=== PATIENT | female | born 1960 | race Native Hawaiian/Other Pacific Islander ===

== ENCOUNTER 2017-01-07 17:08 | Emergency (ER) | payer OTHER ==
[2017-01-07 17:20] VITALS: TEMP 98.6
[2017-01-07] MEDS ORDERED: Sodium Chloride 0.9% 1,000 ML IV STA (17:28)
--- NOTE | 2017-01-07 17:31 | ED PDOC ---
Arrival/HPI - General Chief Complaint: Abdominal Pain Time Seen by Provider: 01/07/17 17:14 Historian: Patient - History of Present Illness Time/Duration: 1/2 hour Symptom Onset: Sudden Symptom Course: Unchanged Quality: Aching Severity Level: Severe Activities at Onset: Rest Associated Symptoms (Text): 01/07/17 17:29 Patient complains of acute onset approximately 30 minutes prior to arrival of severe left flank pain along with nausea and bilious vomiting. Similar to previous kidney stone 2 years ago. No diarrhea. No genitourinary symptoms. No fever or chills. Past Medical History - Infectious Disease Hx of Infectious Diseases: None - Reproductive Menopause: Yes - Renal Hx Kidney Stones: Yes - Psychiatric Hx Substance Use: No Family/Social History - Physician Review Nursing Documentation Reviewed: Yes Family/Social History: Unknown Family HX Smoking Status: Never Smoked Hx Alcohol Use: No Hx Substance Use: No Allergies/Home Meds Allergies/Adverse Reactions: Allergies No Known Allergies Allergy (Verified 01/07/17 17:20) Review of Systems - Physician Review All systems were reviewed & negative as marked: Yes - Review of Systems Constitutional: Normal Respiratory: Normal Cardiovascular: Normal Gastrointestinal: Nausea, Vomiting. absent: Abdominal Pain, Diarrhea Genitourinary Female: absent: Dysuria, Frequency, Hematuria Physical Exam Vital Signs Temp Pulse Resp BP Pulse Ox 01/07/17 17:17 98.6 F 80 16 166/94 H 99 Temperature: Afebrile Blood Pressure: Hypertensive Pulse: Regular Respiratory Rate: Normal Appearance: Positive for: Well-Appearing, Non-Toxic, Uncomfortable, Other ( diaphoretic) Pain Distress: Severe Mental Status: Positive for: Alert and Oriented X 3 - Systems Exam Head: Present: Atraumatic, Normocephalic Pupils: Present: PERRL Extroacular Muscles: Present: EOMI Conjunctiva: Present: Normal Mouth: Present: Moist Mucous Membranes Pharnyx: No: ERYTHEMA, EXUDATE, TONSILS ENLARGED Respiratory/Chest: Present: Clear to Auscultation, Good Air Exchange. No: Respiratory Distress, Accessory Muscle Use Cardiovascular: Present: Regular Rate and Rhythm, Normal S1, S2. No: Murmurs Abdomen: Present: Normal Bowel Sounds. No: Tenderness, Distention, Peritoneal Signs, Rebound, Guarding Back: Present: Normal Inspection. No: CVA Tenderness Upper Extremity: Present: Normal Inspection. No: Cyanosis, Edema Lower Extremity: Present: Normal Inspection. No: Edema Neurological: Present: GCS=15, CN II-XII Intact, Speech Normal Skin: Present: Warm, Normal Color, Diaphoretic. No: Dry, Rashes Medical Decision Making ED Course and Treatment: 01/07/17 18:40 Pain and nausea and vomiting have improved somewhat. 01/07/17 19:51 Symptoms markedly improved. Patient is no longer diaphoretic. No more nausea or vomiting. She will be discharged home accompanied by her friends to follow up with her urologist. Follow up in the ER as needed. - Lab Interpretations Lab Results: 01/07/17 17:56 01/07/17 17:56 Lab Results 01/07/17 19:15: Urine Color Yellow, Urine Appearance Sl cloudy, Urine pH 6.5, Ur Specific [place] 1.015, Urine Protein Negative, Urine Glucose (UA) Negative, Urine Ketones 40 H, Urine Blood Large H, Urine Nitrate Negative, Urine Bilirubin Negative, Urine Urobilinogen 0.2, Ur Leukocyte Esterase Moderate H, Urine RBC Tntc, Urine WBC 10 - 15, Ur Epithelial Cells 10 - 12 01/07/17 17:56: Sodium 141, Potassium 3.4 L, Chloride 102, Carbon Dioxide 26, Anion Gap 16, BUN 19, Creatinine 0.8, Est GFR ( Amer) > 60, Est GFR (Non- Af Amer) > 60, Random Glucose 142 H, Calcium 9.7, Total Bilirubin 0.6, AST 30, ALT 47, Alkaline Phosphatase 73, Total Protein 7.6, Albumin 4.7, Globulin 2.9, Albumin/Globulin Ratio 1.6, Lipase 129 01/07/17 17:56: WBC 10.9, RBC 4.73, Hgb 14.2, Hct 41.3, MCV 87.3, MCH 30.0, MCHC 34.4, RDW 12.6, Plt Count 273, MPV 9.7, Gran % 74.5 H, Lymph % (Auto) 20.6 L, [place] % (Auto) 4.1, Eos % (Auto) 0.7 L, Baso % (Auto) 0.1, Gran # 8.14 H, Lymph # 2.3, [place] # 0.5, Eos # 0.1, Baso # 0.01 - RAD Interpretation Radiology Orders: 01/07/17 17:28 ABD & PELVIS W/O PO OR IV CONT [CT] Stat CT scan of the abdomen and pelvis is read by the radiologist shows a 4 mm left ureteral stone with mild hydronephrosis. Radiographic Technologist: Radiologist - Medication Orders Current Medication Orders: Discontinued Medications Sodium Chloride (Sodium Chloride 0.9%) 1,000 mls @ 1,000 mls/hr IV .Q1H STA Stop: 01/07/17 18:27 Last Admin: 01/07/17 18:03 Dose: 1,000 mls/hr eMAR Start Stop Document 01/07/17 18:03 OCS (Rec: 01/07/17 18:04 OCS [id number] Intravenous Solution Start Date 01/07/17 Start Time 18:03 Ketorolac Tromethamine (Toradol) 30 mg IVP STAT STA Stop: 01/07/17 17:29 Last Admin: 01/07/17 18:12 Dose: 30 mg MAR Pain Assessment Document 01/07/17 18:12 OCS (Rec: 01/07/17 18:12 OCS [id number] Pain Reassessment Is this a pain reassessment? Yes Sleep Is patient sleeping during reassessment? No Presence of Pain Presence of Pain Yes Location Pain Location Body Site Abdomen Description Description Constant Intensity of Pain at present 10 IVP Administration Document 01/07/17 18:12 OCS (Rec: 01/07/17 18:12 OCS [id number] Charges for Administration # of IVP Administrations 1 Ondansetron HCl (Zofran Inj) 4 mg IVP STAT STA Stop: 01/07/17 17:29 Last Admin: 01/07/17 18:03 Dose: 4 mg IVP Administration Document 01/07/17 18:03 OCS (Rec: 01/07/17 18:03 OCS [id number] Charges for Administration # of IVP Administrations 1 Disposition/Present on Arrival - Present on Arrival Any Indicators Present on Arrival: No History of DVT/PE: No History of Uncontrolled Diabetes: No Urinary Catheter: No History of Decub. Ulcer: No History Surgical Site Infection Following: None - Disposition Have Diagnosis and Disposition been Completed?: Yes Diagnosis: Renal colic, Nephrolithiasis Disposition: HOME/ ROUTINE Disposition Time: 19:52 Patient Plan: Discharge Condition: IMPROVED Discharge Instructions (ExitCare): Renal Colic (ED) Prescriptions: oxyCODONE/Acetaminophen [Percocet 5/325 mg Tab] 1 ea PO Q6 #15 tab Ondansetron [Zofran Odt] 4 mg SL Q6 #20 odt Referrals: PCP,NO [Primary Care Provider] - Follow up with primary Nick Wang MD [Staff Provider] - Follow up with primary Forms: [employer] ([place]ian)
[2017-01-07 18:07] LABS: BASO # 0.01 K/mm3 (0.0-2.0); BASO % 0.1 % (0.0-3.0); EOS # 0.1 (0.0-0.7); EOS % 0.7 % (1.5-5.0); GRAN # 8.14 (1.4-6.5); GRAN % 74.5 % (50.0-68.0); HEMATOCRIT 41.3 % (36.0-48.0); LYMPH # 2.3 (1.2-3.4); LYMPH % 20.6 % (22.0-35.0); MEAN CELL VOLUME 87.3 fl (80.0-105.0); MEAN CORPUSCULAR HGB CONC 34.4 g/dl (31.0-37.0); MEAN PLATELET VOLUME 9.7 fl (7.0-11.0); MONO # 0.5 (0.1-0.6); MONO % 4.1 % (1.0-6.0); RED CELL DISTRIBUTION WIDTH 12.6 % (11.5-14.5); WHITE BLOOD COUNT 10.9 10^3/ul (4.5-11.0)
[2017-01-07 18:30] LABS: ALB/GLOB RATIO 1.6 (1.1-1.8); ALKALINE PHOSPHATASE 73 U/L (38-126); ALT/SGPT 47 U/L (7-56); AST/SGOT 30 U/L (14-36); BILIRUBIN,TOTAL 0.6 mg/dL (0.2-1.3); BLOOD UREA NITROGEN 19 mg/dL (7-21); CALCIUM 9.7 mg/dL (8.4-10.5); CARBON DIOXIDE 26 mmol/L (21-33); CHLORIDE 102 mmol/L (98-107); GFR AFRICAN-AMERICAN > 60; GLUCOSE,RANDOM 142 mg/dL (70-110); LIPASE 129 U/L (23-300); POTASSIUM 3.4 mmol/L (3.6-5.0); SODIUM 141 mmol/L (132-148); TOTAL PROTEIN 7.6 g/dL (5.8-8.3)
[2017-01-07 19:36] LABS: PH,URINE 6.5 (4.7-8.0); URINE BILIRUBIN NEGATIVE (NEGATIVE); URINE BLOOD LARGE (NEGATIVE); URINE GLUCOSE (UA) NEGATIVE (NEGATIVE); URINE KETONE 40 mg/dL (NEGATIVE); URINE LEUKOCYTE ESTERASE MODERATE Leu/uL (NEGATIVE); URINE PROTEIN NEGATIVE mg/dL (<30 mg/dL); URINE UROBILINOGEN 0.2 E.U./dL (<1 E.U./dL)
[2017-01-07 19:41] LABS: URINE APPEARANCE SL CLOUDY (CLEAR); URINE COLOR YELLOW (YELLOW)
[2017-01-07 19:42] LABS: URINE RBC TNTC /hpf (0-2)
[2017-01-07 19:55] VITALS: BP 119/92; PULSE 83; RESP 18; O2SAT 98
--- NOTE | 2017-01-08 09:23 | CT ---
PROCEDURE: CT Abdomen and Pelvis without intravenous or oral contrast HISTORY: left stone run COMPARISON: None. TECHNIQUE: Technique Contiguous axial images of the abdomen and pelvis without intravenous or oral contrast. Radiation dose: Total exam DLP = mGy-cm. This CT exam was performed using one or more of the following dose reduction techniques: Automated exposure control, adjustment of the mA and/or kV according to patient size, and/or use of iterative reconstruction technique. FINDINGS: LOWER THORAX: Unremarkable. LIVER: 10 mm cyst right hepatic lobe. Otherwise unremarkable liver GALLBLADDER AND BILE DUCTS: Unremarkable. PANCREAS: Unremarkable. No ductal dilatation. SPLEEN: Unremarkable. No splenomegaly. ADRENALS: Unremarkable. KIDNEYS AND URETERS: Proximal left ureteral calculus 3 mm. Unilateral, left hydronephrosis. No upper tract renal calculi on the left. Right kidney in ureter: Unremarkable BLADDER: Unremarkable. No calculus. REPRODUCTIVE: Unremarkable. APPENDIX: No abnormalities to suggest acute appendicitis. No right lower quadrant inflammatory processes identified. STOMACH AND BOWEL: Unremarkable. No obstruction. No gross mural thickening. PERITONEUM: Unremarkable. No significant fluid collection. No free air. LYMPH NODES: Unremarkable. No enlarged lymph nodes. VASCULATURE: Unremarkable. No aortic aneurysm. BONES: No acute fracture. OTHER FINDINGS: None . IMPRESSION: Proximal left ureteral calculus, associated mild left hydroureter and hydronephrosis. The calculus measures 3 x 4 mm. Additional benign and/or incidental findings described above. Concordant results (preliminary interpretation) provided by [employer]. Procedure Completed: 18:22 Preliminary ([employer]) Report: Dictated and Authenticated: 18:53 Final Interpretation: 09:21Janober 2016.
== END 2017-01-07 19:58 | disposition home or self-care (01) ==
LOC: ED 17:08
DX: N20.0 Calculus of kidney (principal); Z87.442 Personal history of urinary calculi
CPT/HCPCS: 74176; 80053; 81001; 83690; 85025; 87086; 96374; 96375; 99283; J1885; J2405; J7040